=== PATIENT | female | born 1955 | race Caucasian/White ===

== ENCOUNTER 2016-04-28 06:05 | Emergency (ER) | payer OTHER ==
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
[~2016-04-28 06:05] MED LIST: ACETAMINOPHEN PO; ALCOHOL SWABS; DOXYCYCLINE PO; GLUCOMETER; GLUCOMETER STRIPS; GLUCOTROL PO; INSULIN SYRINGES; KEFLEX PO; LANCETS; METFORMIN PO; NOVOLOG MI100 UNIT/1 SUBQ; VICODIN 5/1 TAB 5/50 PO; VOLTAREN75 MG PO
== END 2016-04-28 08:12 | disposition home or self-care (01) ==
LOC: CED 06:05
DX: S60.211A Contusion of right wrist, initial encounter (principal); S70.12XA Contusion of left thigh, initial encounter; E11.9 Type 2 diabetes mellitus without complications; J45.909 Unspecified asthma, uncomplicated; F17.200 Nicotine dependence, unspecified, uncomplicated; Z79.4 Long term (current) use of insulin; Y04.0XXA Assault by unarmed brawl or fight, initial encounter; Y92.009 Unspecified place in unspecified non-institutional (private) residence as the place of occurrence of the external cause
CPT/HCPCS: 70450; 71010; 73110; 94640; 99284

== ENCOUNTER → 2016-10-18 | Outpatient (CLI) | payer OTHER ==
[2016-10-18 09:53] LABS: BUN/CREATININE RATIO 27.14; CALCIUM SERUM 9.8 mg/dL (8.4-10.2); CREATININE SERUM 0.7 mg/dL (0.6-1.4); GLOM FILT RATE Estimated 92.9 mL/min (>60); POTASSIUM 4.1 mmol/L (3.5-5.1)
== END | disposition home or self-care (01) ==
LOC: CLAB 08:38
PROVIDERS: Internal Medicine Endocrinology, Diabetes & Metabolism
DX: E11.65 Type 2 diabetes mellitus with hyperglycemia (principal); E78.5 Hyperlipidemia, unspecified
CPT/HCPCS: 36415; 80048; 80061; 83036